=== PATIENT | female | born 1955 | race Caucasian/White ===

== ENCOUNTER → 2018-01-30 19:46 | Outpatient (CLI) | payer MEDICAID | END | disposition home or self-care (01) | LOC: D.MAMMO 13:30 | DX: N63.20 Unspecified lump in the left breast, unspecified quadrant (principal); N63.10 Unspecified lump in the right breast, unspecified quadrant ==

== ENCOUNTER 2018-12-19 08:10 | Day surgery (SDC) | payer MEDICAID ==
[~2018-12-19] VITALS: Ht 160 cm; Wt 86.2 kg
[~2018-12-19 08:10] MED LIST: BAYER CHEWABLE81 MG PO; COZAAR100 MG PO; FUROSEMIDE40 MG PO; GLUCOTROL 5 MG T5 MG PO; HYDROCODON-ACE1 EAC7 PO; LOPRESSOR25 MG PO; PEPCID AC20 MG PO; ROPINIROLE HCL2 MG PO; VESICARE5 MG PO; ZOCOR40 MG PO
[2018-12-19 08:39] LABS: HEMATOCRIT 40.1 % (36.0-48.0); HEMOGLOBIN 13.9 g/dL (12-16); MCHC 34.7 g/dL (31.0-37.0); MCV 92.4 fL (80.0-100.0); MEAN PLATELET VOLUME 9.3 fL (7.4-10.4); RBC 4.34 10x6/uL (4.00-5.40); RDW 13.3 % (11.5-14.5); WBC 11.6 10x3/uL (4.8-10.8)
[2018-12-19 08:48] LABS: ANION GAP 14.4 mmol/L (8-16); CALCIUM 9.2 mg/dL (8.5-10.1); CARBON DIOXIDE 29.8 mmol/L (21.0-32.0); CREATININE - SERUM 1.1 mg/dL (0.6-1.3); POTASSIUM - SERUM 4.2 mmol/L (3.5-5.1)
[2018-12-19 09:50] VITALS: BP 143/70; Ht 160 cm; Wt 86.2 kg
--- NOTE | 2018-12-22 10:26 | HP ---
PATIENT: BETSY CHAN MEDICAL RECORD: [id number] ACCOUNT: [id number] LOCATION:[facility] : 59 ADMISSION DATE: 12/19/18 [facility] H[facility]ORY AND PHYSICAL EXAMINATION HISTORY: Betsy is 61 years old. She has been having problems with hoarseness and persistent very large vocal cord polyps. She is being admitted for microsuspension laryngoscopy and bilateral vocal cord polyps excision. PAST MEDICAL HISTORY: Includes diabetes, hypertension, ulcers, and reflux. CURRENT MEDICATIONS: Include hydrocodone, Lasix, simvastatin, VESIcare, famotidine, ropinirole, atenolol, glipizide, and Carafate. ALLERGIES: SULFA. PHYSICAL EXAMINATION: GENERAL: She has significantly hoarse voice and almost biphasic stridor. FACE: Normal and symmetric. No lesions. EYES: Sclerae and conjunctivae are normal. EARS: Canals and TMs are normal. NECK: No masses. No adenopathy. Laryngoscopy reveals huge floppy vocal cord polyps bilaterally that generally overlap each other. CHEST: Clear. CARDIOVASCULAR: Regular rate and rhythm. No murmur. EXTREMITIES: Normal. IMPRESSION: Large bilateral vocal cord polyps. She quit smoking a year and a half ago, really not improving at this point. PLAN: Microsuspension laryngoscopy and excision of bilateral vocal cord polyps. TRANSINT:[id number] Voice Confirmation ID: [id number] DOCUMENT ID: [id number] EMILIA VERNON MD at 1026 CC: [id number] DICTATION DATE: 12/17/18 1552 DECORATOR MANNEQUIN: 12/17/18 1720 [facility] 12/19/18 [place] [id number] [place] [id number]
--- NOTE | 2018-12-22 10:26 | OP ---
PATIENT NAME: BETSY CHAN MEDICAL RECORD: [id number] :59 LOCATION:[facility] ADMISSION DATE: SURGEON: DUDLEY WARD MD DATE OF OPERATION: 12/19/2018 PREOPERATIVE DIAGNOSIS: Very large bilateral vocal cord polyps, hoarseness, stridor. POSTOPERATIVE DIAGNOSIS: Very large bilateral vocal cord polyps, hoarseness, stridor. PROCEDURE: Micro-suspension laryngoscopy and excision of a right and left vocal cord polyp. SURGEON: Dudley Ward MD ANESTHESIA: General orotracheal. BLOOD LOSS: 1 cc. SPECIMENS: Right and left vocal cord polyp. COMPLICATIONS: None. DISPOSITION: Recovery stable. PROCEDURE NOTE: She was brought to the operating room and placed in supine position, sedated and intubated by anesthesia. A 6-0 cuffed endotracheal tube. Table was turned 90 degrees. Head drape was applied and she was positioned for endoscopy. Using a headlight, oral cavity was examined. The tube was moved to the left. A plastic upper tooth guard was placed. Kleinsasser J laryngoscope was used to examine the hypopharynx, larynx. No lesions were identified. Was brought in to examine the cords. She had large bilateral vocal cord polyps, right larger than left. She was placed in suspension with a good view of both cords. Using a 2 mm cup forceps and an upbiting scissor, the right polyp was removed first making a notch at the anterior aspect of the polyp before the anterior commissure and then excising the mucosa on the superior surface and stretching that out and making an excision up along the inferior mucosal surface just leaving enough mucosa to cover the cord itself, but the entire polyp was removed. The same was repeated on the left side. Both were sent for specimen. Afrin pledget was placed between the cords for a few minutes and she had nice smooth covering of both the vocal ligaments with normal mucosa. Subglottis and upper trachea were normal. The Kleinsasser laryngoscope was taken out of suspension and removed. Plastic tooth guard was removed. She was repositioned. She was awakened, extubated, and transported to recovery in good condition. No complications. TRANSINT:[id number] Voice Confirmation ID: [id number] DOCUMENT ID: [id number] OPERATIVE REPORT [id number] BETSY CHAN DUDLEY WARD MD at 1026 CC: [id number] DICTATION DATE: 12/19/18 1427 CUSTOMER MANAGEMENT SPECIALIST: 12/19/18 2338 [facility] [place] 12/19/18 [facility] [address] [place] [address]
== END 2018-12-19 16:35 | disposition home or self-care (01) ==
LOC: D.OPS 08:10
PROVIDERS: Anesthesiology; ATTEND Otolaryngology
DX: J38.1 Polyp of vocal cord and larynx (principal); R49.0 Dysphonia; E11.9 Type 2 diabetes mellitus without complications; I10 Essential (primary) hypertension; K21.9 Gastro-esophageal reflux disease without esophagitis; Z79.891 Long term (current) use of opiate analgesic; Z79.84 Long term (current) use of oral hypoglycemic drugs; Z79.899 Other long term (current) drug therapy; Z01.812 Encounter for preprocedural laboratory examination

== ENCOUNTER 2019-03-31 11:30 | Outpatient (CLI) | payer MEDICAID ==
[2018-12-19 09:50] VITALS: BMI 33.7
== END 2019-03-31 12:00 | disposition home or self-care (01) ==
LOC: D.MAMMO 11:30
PROVIDERS: ATTEND General Practice
DX: Z12.31 Encounter for screening mammogram for malignant neoplasm of breast (principal)